=== PATIENT | female | born 1995 | race American Indian/Alaskan Native ===

== ENCOUNTER 2017-01-18 09:15 | Emergency (ER) | payer SELFPAY ==
[2017-01-18 10:22] LABS: Basophils % (Auto) 0.6 % (0.0-1.8); Hematocrit 38.2 % (30.3-42.9); Hemoglobin 12.5 gm/dl (10.1-14.3); Mean Corpuscular HGB Conc 33 % (30-34); Mean Corpuscular Hemoglobin 31 pg (28-32); Mean Corpuscular Volume 95 fl (79-97); Platelet Count 255 K/mm3 (140-440); Red Blood Count 4.01 M/mm3 (3.65-5.03); Red Cell Distribution Width 13.4 % (13.2-15.2); White Blood Count 9.7 K/mm3 (4.5-11.0)
[2017-01-18 10:38] LABS: Alanine Aminotransferase 12 units/L (7-56); Albumin 4.2 g/dL (3.9-5); Albumin/Globulin Ratio 1.6 %; Alkaline Phosphatase 72 units/L (35-129); Anion Gap 15 mmol/L; Blood Urea Nitrogen 11 mg/dL (7-17); Calcium 9.1 mg/dL (8.4-10.2); Carbon Dioxide 28 mmol/L (22-30); Chloride 103.5 mmol/L (98-107); Glucose 108 mg/dL (65-100); Lipase 18 units/L (13-60); Potassium 4.2 mmol/L (3.6-5.0); Sodium 142 mmol/L (137-145); Total Protein 6.8 g/dL (6.3-8.2)
[2017-01-18 11:42] LABS: Bacteria,Urine 1+ /HPF (Negative); Bilirubin,Urine NEG (Negative); Blood,Urine LG (Negative); Ketones,Urine NEG (Negative); Leukocyte Esterase,Urine LG (Negative); Nitrite,Urine NEG (Negative); Urobilinogen,Urine < 2.0 mg/dL (<2.0)
[2017-01-18 11:43] LABS: WBC,Urine > 182.0 /HPF (0.0-6.0)
[2017-01-18] MEDS ORDERED: TYLENOL PO ONE (17:56)
[2017-01-18] MEDS ORDERED: VIBRAMYCIN PO ONE (20:06)
[2017-01-18] MEDS ORDERED: XYLOCAINE 1% MPF 5 mL INFILTRATI ONE (20:07)
[2017-01-18] MEDS ORDERED: ROCEPHIN IM ONE (20:07)
--- NOTE | 2017-01-18 20:08 | Emergency Department Report ---
ED Abdominal Pain HPI - General Chief Complaint: Abdominal Pain Stated Complaint: ABDOMEN PAIN Time Seen by Provider: 01/18/17 19:25 Source: patient Mode of arrival: Ambulatory Limitations: No Limitations - History of Present Illness Initial Comments: She is a 21-year-old femalewith past medical history who presents with dysuria and pelvic pain. Patient states symptoms started today she states it's a 6/10 and it's the gurney achy type of pain that radiates to her pelvis. She states that she noticed some green and white discharge coming from her vagina. Patient states that she is sexually active but she uses protection. Patient denies having any nausea or vomiting. She states that her last menstrual cycle was 3 days ago. She denies having any other symptoms. Severity scale (0 -10): 8 - Related Data Previous Rx's Medication Instructions Recorded Last Taken Type Nitrofurantoin Bracken/M-Cryst 100 mg PO Q12HR #10 capsule 09/24/13 Unknown Rx [Macrobid] Dicyclomine [Bentyl] 20 mg PO QID PRN #14 tablet 11/09/15 Unknown Rx Promethazine [Phenergan TAB] 25 mg PO Q6HR PRN #14 tab 11/09/15 Unknown Rx Doxycycline [Vibramycin CAP] 100 mg PO BID #28 capsule 01/18/17 Unknown Rx Fluconazole [Diflucan TAB] 150 mg PO ONCE #1 tablet 01/18/17 Unknown Rx Ondansetron [Zofran TAB] 4 mg PO Q8HR PRN #15 tablet 01/18/17 Unknown Rx Allergies Allergy/AdvReac Type Severity Reaction Status Date / Time erythromycin base Allergy Shortness Verified 09/24/13 09:44 [From Dickson-Tab] of Breath Penicillins Allergy Anaphylaxis Verified 09/24/13 09:44 Sulfa (Sulfonamide Allergy Anaphylaxis Verified 09/24/13 09:44 Antibiotics) ED Review of Systems ROS: Stated complaint: ABDOMEN PAIN Other details as noted in HPI Constitutional: denies: chills, fever Eyes: denies: eye pain, eye discharge, vision change ENT: denies: ear pain, throat pain Respiratory: denies: cough, shortness of breath, wheezing Cardiovascular: denies: chest pain, palpitations Endocrine: no symptoms reported Gastrointestinal: denies: abdominal pain, nausea, diarrhea Genitourinary: dysuria, discharge. denies: urgency Musculoskeletal: denies: back pain, joint swelling, arthralgia Skin: denies: rash, lesions Neurological: denies: headache, weakness, paresthesias Psychiatric: denies: anxiety, depression Hematological/Lymphatic: denies: easy bleeding, easy bruising ED Past Medical Hx - Past Medical History Hx GERD: Yes - Surgical History Additional Surgical History: Elective - Social History Smoking Status: Current Every Day Smoker Substance Use Type: Marijuana - Medications Home Medications: Home Medications Medication Instructions Recorded Confirmed Last Taken Type Nitrofurantoin Bracken/M-Cryst 100 mg PO Q12HR #10 capsule 09/24/13 Unknown Rx [Macrobid] Dicyclomine [Bentyl] 20 mg PO QID PRN #14 tablet 11/09/15 Unknown Rx Promethazine [Phenergan TAB] 25 mg PO Q6HR PRN #14 tab 11/09/15 Unknown Rx Doxycycline [Vibramycin CAP] 100 mg PO BID #28 capsule 01/18/17 Unknown Rx Fluconazole [Diflucan TAB] 150 mg PO ONCE #1 tablet 01/18/17 Unknown Rx Ondansetron [Zofran TAB] 4 mg PO Q8HR PRN #15 tablet 01/18/17 Unknown Rx ED Physical Exam - General Limitations: No Limitations General appearance: alert, in no apparent distress - Head Head exam: Present: atraumatic, normocephalic - Eye Eye exam: Present: normal appearance - ENT ENT exam: Present: mucous membranes moist - Neck Neck exam: Present: normal inspection - Respiratory Respiratory exam: Present: normal lung sounds bilaterally. Absent: respiratory distress - Cardiovascular Cardiovascular Exam: Present: regular rate, normal rhythm. Absent: systolic murmur, diastolic murmur, rubs, gallop - GI/Abdominal GI/Abdominal exam: Present: soft, normal bowel sounds - Extremities Exam Extremities exam: Present: normal inspection - Back Exam Back exam: Present: normal inspection - Neurological Exam Neurological exam: Present: alert, oriented X3 - Psychiatric Psychiatric exam: Present: normal affect, normal mood - Skin Skin exam: Present: warm, dry, intact, normal color. Absent: rash ED Course Vital Signs 01/18/17 01/18/17 01/18/17 09:44 18:42 18:46 Temperature 97.2 F L Pulse Rate 67 Respiratory 18 Rate Blood Pressure 124/78 Blood Pressure [Left] O2 Sat by Pulse 100 100 100 Oximetry 01/18/17 01/18/17 01/18/17 19:00 19:16 19:30 Temperature Pulse Rate Respiratory Rate Blood Pressure 135/68 135/68 135/68 Blood Pressure [Left] O2 Sat by Pulse 99 99 100 Oximetry 01/18/17 01/18/17 01/18/17 19:46 20:00 20:16 Temperature Pulse Rate 72 Respiratory 18 Rate Blood Pressure 135/68 135/68 140/61 Blood Pressure 129/72 [Left] O2 Sat by Pulse 100 100 100 Oximetry 01/18/17 20:30 Temperature Pulse Rate Respiratory Rate Blood Pressure 140/61 Blood Pressure [Left] O2 Sat by Pulse 100 Oximetry ED Medical Decision Making - Lab Data Result diagrams: 01/18/17 09:58 01/18/17 09:58 Lab Results 01/18/17 01/18/17 01/18/17 Range/Units 09:58 09:58 10:44 WBC 9.7 (4.5-11.0) K/mm3 RBC 4.01 (3.65-5.03) M/mm3 Hgb 12.5 (10.1-14.3) gm/dl Hct 38.2 (30.3-42.9) % MCV 95 (79-97) fl MCH 31 (28-32) pg MCHC 33 (30-34) % RDW 13.4 (13.2-15.2) % Plt Count 255 (140-440) K/mm3 Lymph % (Auto) 18.3 (13.4-35.0) % Bracken % (Auto) 4.8 (0.0-7.3) % Eos % (Auto) 1.0 (0.0-4.3) % Baso % (Auto) 0.6 (0.0-1.8) % Lymph # 1.8 (1.2-5.4) K/mm3 Bracken # 0.5 (0.0-0.8) K/mm3 Eos # 0.1 (0.0-0.4) K/mm3 Baso # 0.1 (0.0-0.1) K/mm3 Seg Neutrophils % 75.3 H (40.0-70.0) % Seg Neutrophils # 7.3 (1.8-7.7) K/mm3 Sodium 142 (137-145) mmol/L Potassium 4.2 (3.6-5.0) mmol/L Chloride 103.5 (98-107) mmol/L Carbon Dioxide 28 (22-30) mmol/L Anion Gap 15 mmol/L BUN 11 (7-17) mg/dL Creatinine 0.5 L (0.7-1.2) mg/dL Estimated GFR > 60 ml/min BUN/Creatinine Ratio 22.00 % Glucose 108 H (65-100) mg/dL Calcium 9.1 (8.4-10.2) mg/dL Total Bilirubin 0.30 (0.1-1.2) mg/dL AST 16 (5-40) units/L ALT 12 (7-56) units/L Alkaline Phosphatase 72 (35-129) units/L Total Protein 6.8 (6.3-8.2) g/dL Albumin 4.2 (3.9-5) g/dL Albumin/Globulin Ratio 1.6 % Lipase 18 (13-60) units/L Urine Color Yellow (Yellow) Urine Turbidity Clear (Clear) Urine pH 6.0 (5.0-7.0) Ur Specific [place] 1.016 (1.003-1.030) Urine Protein 30 mg/dl (Negative) mg/dL Urine Glucose (UA) Neg (Negative) mg/dL Urine Ketones Neg (Negative) mg/dL Urine Blood Lg (Negative) Urine Nitrite Neg (Negative) Urine Bilirubin Neg (Negative) Urine Urobilinogen < 2.0 (<2.0) mg/dL Ur Leukocyte Esterase Lg (Negative) Urine WBC (Auto) > 182.0 H (0.0-6.0) /HPF Urine RBC (Auto) 31.0 (0.0-6.0) /HPF U Epithel Cells (Auto) 25.0 H (0-13.0) /HPF Urine Bacteria (Auto) 1+ (Negative) /HPF - Radiology Data Radiology results: report reviewed, image reviewed Transabdominal ultrasound: Shows no pelvic fluid no ovarian cyst. Unremarkable exam. - Medical Decision Making Medical diagnosis: Urinary tract infection Differential diagnosis: Cervicitis, PID, bacterial vaginosis, candidiasis infection I will get CBC, CMP, urinalysis and I will give patient oral antibiotics. I will also give patient transabdominal ultrasound. Patient's symptoms are most concerning for cervicitis I will send patient home with 14 days of doxycycline. And I will give patient fluconazole and Zofran. Discussed outpatient she agrees to plan additional verbal discharge instructions were given. Patient will also follow up with primary care physician. Critical care attestation.: If time is entered above; I have spent that time in minutes in the direct care of this critically ill patient, excluding procedure time. ED Disposition Clinical Impression: Cervicitis UTI (urinary tract infection) Qualifiers: Urinary tract infection type: acute cystitis Hematuria presence: without hematuria Qualified Code(s): N30.00 - Acute cystitis without hematuria Disposition: TO HOME OR SELFCARE Is pt being admited?: No Does the pt Need Aspirin: No Condition: Stable Instructions: Cervicitis (ED), Urinary Tract Infection in Women (ED), Abdominal Pain (ED) Prescriptions: Doxycycline [Vibramycin CAP] 100 mg PO BID #28 capsule Fluconazole [Diflucan TAB] 150 mg PO ONCE #1 tablet Ondansetron [Zofran TAB] 4 mg PO Q8HR PRN #15 tablet PRN Reason: Nausea Referrals: JOSHUA PRUITT MD [Staff Physician] - 3-5 Days Forms: STI Treatment and Prevention, Work/School Release Form(ED)
[2017-01-18] MEDS ORDERED: BENADRYL IV ONE (21:36)
[2017-01-18 21:41] VITALS: BP 140/61
[2017-01-18] MEDS ORDERED: DELTASONE PO ONE (21:43)
[2017-01-18] MEDS ORDERED: BENADRYL IM ONE (21:43)
--- NOTE | 2017-01-18 22:04 | Ultrasound Report ---
FINAL REPORT PROCEDURE: US PELVIC COMPLETE TECHNIQUE: Real-time transabdominal sonography in multiple planes of pelvis was performed with image documentation. This examination was performed without Doppler. Vascular abnormalities, including ovarian torsion, will not be detectable without Doppler evaluation. CPT 32594 HISTORY: pelvic pain COMPARISON: No prior studies are available for comparison. FINDINGS: UTERUS Size: 9 x 3 x 4 cm. Endometrial thickness: 3 mm. A hyperechoic area is noted involving the posterior uterine body measuring about 1.2 by 3.6 centimeters Orientation: anteverted. Cervix: Normal. Fibroids/masses: None. RIGHT Ovary: 3.6 x 1.4 x 3.4 cm. Appearance: Normal. LEFT Ovary: 2.8 x 2.5 x 2.5 cm. Appearance: Normal. Pelvic fluid: None significant. Other: None. IMPRESSION: Hyperechoic area involving the posterior in body may represent adenomyosis. Transvaginal ultrasound is recommended for further evaluation.
== END 2017-01-18 23:42 | disposition home or self-care (01) ==
LOC: ED 09:15
DX: N30.00 Acute cystitis without hematuria (principal); N72 Inflammatory disease of cervix uteri; K21.9 Gastro-esophageal reflux disease without esophagitis; F12.10 Cannabis abuse, uncomplicated; F17.200 Nicotine dependence, unspecified, uncomplicated; Z88.0 Allergy status to penicillin; Z88.1 Allergy status to other antibiotic agents; Z88.2 Allergy status to sulfonamides
CPT/HCPCS: 36415; 76856; 80053; 81001; 83690; 85025; 96372; 99284; J0696; J1200; J7512